=== PATIENT | male | born 1970 | race Hispanic/Latino ===

== ENCOUNTER 2019-01-12 16:42 | Emergency (ER) | payer OTHER | END 2019-01-12 17:32 | disposition home or self-care (01) | LOC: EDH 16:42 | DX: S93.492A Sprain of other ligament of left ankle, initial encounter (principal); E11.9 Type 2 diabetes mellitus without complications; I10 Essential (primary) hypertension; X50.1XXA Overexertion from prolonged static or awkward postures, initial encounter; Y93.89 Activity, other specified; Y92.481 Parking lot as the place of occurrence of the external cause; Y99.8 Other external cause status | CPT/HCPCS: 73610 ==

== ENCOUNTER 2020-01-23 09:56 | Inpatient (IN) | payer OTHER, SELFPAY ==
[~2020-01-23] VITALS: Ht 167.6 cm; Wt 174.0 kg
[2020-01-23 10:50] LABS: BASOPHILS % (AUTO) 0.1 % (0.0-5.0); HEMATOCRIT 47.6 % (42-54); LYMPHOCYTES % (AUTO) 6.7 % (21.0-51.0); MEAN CORPUSCULAR HEMOGLOBIN 29.8 pg (27.0-33.0); MEAN CORPUSCULAR HGB CONC 32.8 g/dL (32.0-36.0); MEAN CORPUSCULAR VOLUME 90.8 fL (79-99); MONOCYTES % (AUTO) 4.3 % (3.0-13.0); NEUTROPHILS % (AUTO) 88.5 % (40.0-77.0); PLATELET COUNT (AUTO) 182 K/uL (130-400); RED BLOOD CELL COUNT(AUTO) 5.24 MIL/uL (4.50-6.20); RED CELL DISTRIBUTION WIDTH 13.2 % (11.0-15.5); WHITE BLOOD COUNT (AUTO) 8.3 K/uL (4.8-10.8)
[2020-01-23 11:03] LABS: PROTHROMBIN TIME 10.8 SEC (9.6-11.6)
[2020-01-23 11:16] LABS: ALBUMIN 3.2 g/dL (3.5-5.0); CREATININE 1.4 mg/dL (0.5-1.5); POTASSIUM 3.9 mmol/L (3.5-5.1); TOTAL PROTEIN, SERUM 7.9 g/dL (6.0-8.3)
[2020-01-23 11:29] LABS: BILIRUBIN,TOTAL 0.9 mg/dL (0.2-1.0)
[2020-01-23] MEDS ORDERED: ONDANSETRON HCL 4 MG/2 ML VIAL IVP PRN (12:45)
[2020-01-23] MEDS ORDERED: HYDRALAZINE HCL 20 MG/ML VIAL IV PRN (12:45)
[2020-01-23] MEDS ORDERED: POTASSIUM CHLORIDE 10% ELIXIR 20 MEQ/15 ML UDCUP PO PRN (12:45)
[2020-01-23] MEDS ORDERED: LIDOCAINE HCL-MPF 1% 2ML VIAL IV PRN (12:45)
[2020-01-23] MEDS ORDERED: LACTULOSE 20 GM/30 ML UDCUP PO PRN (12:45)
[2020-01-23] MEDS ORDERED: POTASSIUM CHLORIDE 20MEQ/100ML 100 ML IV PRN (12:45)
[2020-01-23] MEDS ORDERED: LOPERAMIDE 1 MG/7.5 ML UDCUP PO PRN (12:45)
[2020-01-23] MEDS ORDERED: LEVOFLOXACIN 500 MG/D5W 100 ML 100 ML ONE (12:46)
[2020-01-23] MEDS ORDERED: CEFTRIAXONE SODIUM 1 GM ONE (12:46)
[2020-01-23] MEDS ORDERED: ACETAMINOPHEN EXTRA STRENGTH 500 MG TABLET ONE (12:47)
[2020-01-23 13:47] LABS: ABG BASE EXCESS -2.9 mmol/L (-2.0-3.0); ABG HCO3 22.1 mmol/L (21.0-28.0); ABG OXYGEN SATURATION 96.1 % (95.0-99.0); ABG PCO2 39 mmHg (35-48)
[2020-01-23 14:01] LABS: CRP QUANTITATIVE 114.4 mg/L (0.00-9.0); MAGNESIUM 1.4 mg/dL (1.80-2.40)
[2020-01-23] MEDS ORDERED: FUROSEMIDE 10 MG/ML 4ML VIAL ONE (14:50)
[2020-01-23] MEDS ORDERED: PHARMACY COMMUNICATION MISC SCH (15:15)
[2020-01-23] MEDS: FUROSEMIDE 10 MG/ML 4ML VIAL IV SCH (16:00)
[2020-01-23] MEDS: FAMOTIDINE 20MG TAB 20 MG TAB PO SCH (21:00)
[2020-01-23] MEDS ORDERED: FAMOTIDINE 20MG TAB 20 MG TAB ONE (21:45)
[2020-01-23] MEDS ORDERED: ENOXAPARIN SODIUM 100 MG/1 ML SQ ONE (21:47)
[2020-01-23 23:40] VITALS: BP 155/90
--- NOTE | 2020-01-23 23:47 | NUR ---
ADMIT PT ADMITTED TO ROOM 410, AAOX3 WITH NOTED SOB WITH EXERTION. PLACED PT ON 5LPM VIA NC, O2 SATS = 92%. ADMISSION CARE DONE. PLACED COMFORTABLY IN BED WITH HOB ELEVATED. ADMISSION DATA BASE COMPLETED. ORIENTED TO ROOM AND UNIT. IN FOR MORE CARE AND MANAGEMENT. Addendum: 01/24/20 at 0011 by JINA MCKEON RN RN Amended: Links added.
[2020-01-24] MEDS ORDERED: PRED20TA3 PO (00:18)
[2020-01-24] MEDS ORDERED: AMLO-97 PO (00:18)
[2020-01-24] MEDS ORDERED: METO-409 PO (00:18)
[2020-01-24] MEDS ORDERED: AZIT250T9 PO (00:18)
[2020-01-24] MEDS ORDERED: ALBU8.5H8 IH (00:21)
[2020-01-24] MEDS ORDERED: ENOXAPARIN SODIUM 120 MG/0.8ML SQ SCH (01:45)
--- NOTE | 2020-01-24 02:00 | NUR ---
ROUNDS PT RESTING WELL. NO NOTED DISTRESS. KEPT COMFORTABLE WITH HOB ELEVATED. CALL LIGHT WITHIN REACH. WILL MONITOR PT.
[2020-01-24] MEDS: FUROSEMIDE 10 MG/ML 4ML VIAL IV SCH ×2 (03:33→16:06)
--- NOTE | 2020-01-24 03:34 | NUR ---
MEDS PCP IN TO MONITOR V/S, STABLE. RT ASKED FOR EXTENSION TUBING FOR PT. DELIVERED AND INSTRUCTED TO CALL [facility] IN NEED TO AMBULATE TO THE RESTROOM. PT CLAIMS TO ONLY HAVE SOB WHEN MOVING. PT VERBALIZES UNDERSTANDING. DUE MEDS ADMINISTERED. SALINE FLUSHED PIVS, PATENT. WILL MONITOR PT. Addendum: 01/24/20 at 0356 by JINA MCKEON RN RN Amended: Links added.
[2020-01-24 03:55] VITALS: BP 129/82
--- NOTE | 2020-01-24 05:15 | NUR ---
O2 PT WENT TO THE RESTROOM THEN BACK TO BED. GED TEACHER IN TO DO CHEST X-RAY. PT'S O2 SATS GOING DOWN TO 85-88 ON 5LPM NC. RE-POSITIONED PT IN BED BUT PT IS MORE DYSPNEIC WITH MOVEMENT. ASSISTED PT TO SIT UP ON THE SIDE OF THE BED AND LEAN ON 2 PILLOWS OVER THE BEDSIDE TABLE. PT'S O2 SAT=90%. WILNER RT, MADE AWARE AND STATED TO JUST PUT PT ON MASK. PLACED PT ON 50% VENTI MASK. O2 SATS INCREASED TO 94%. WILL MONITOR CLOSELY. CALL LIGHT WITHIN REACH. INSTRUCTED TO BE BEDREST FOR NOW.
[2020-01-24 08:00] VITALS: BP 111/71
[2020-01-24] MEDS: FAMOTIDINE 20MG TAB 20 MG TAB PO SCH ×2 (09:22→20:36)
[2020-01-24] MEDS: DEXAMETHASONE SOD PHOSPHATE 4 MG/ML 1ML VIAL IVP SCH (09:22)
[2020-01-24] MEDS: ENOXAPARIN SODIUM 120 MG/0.8ML SQ SCH ×2 (09:24→20:37)
[2020-01-24 12:00] VITALS: BP 185/98
[2020-01-24] MEDS ORDERED: PHARMACY COMMUNICATION MISC SCH (14:00)
[2020-01-24] MEDS ORDERED: REMDESIVIR (EUA) 520 200 MG in SODIUM CHLORIDE 0.9% 250 ML IV ONE (15:00)
[2020-01-24 16:00] VITALS: BP 125/68
--- NOTE | 2020-01-24 17:36 | NUR ---
DCP CM spoke to pt discussed dc plans. Pt is independent prior to admission, lives at home with brother. Denies any equipments/services. Feels safe to go back home, still drives and works, sister Shanice Osullivan and other siblings able to assist with transportation and needs as necessary. DC plan to home once stable. CM to cont to follow up. Addendum: 01/24/20 at 1737 by NELLA SORIA LVN CM Amended: Links added.
--- NOTE | 2020-01-24 19:35 | NUR ---
PM Assessment Received pt sited at the edge of the bed with Venti mask at 50% noted saturating at 92%, Remdesivir reported 1st dose in progress. Routine assessment done, plan of care discuss, pt made aware that once the Remdesivir will be completely infused then I will administer the convalescent plasma 1 unit as order. PT currently denies discomfort, claimed it was last night that he got so scared thinking he might due to SOB. I verified with pt if he was advise to do prone position if possible. Pt claimed he had tried, but unable to tolerate. PT made aware that prone position really help with issue of SOB, if he can to continue trying, pt agreed.
[2020-01-24 20:16] VITALS: BP 106/64
[2020-01-24] MEDS: INSULIN HUMULIN R 100 UNIT/ML 3ML SQ SCH (22:35)
--- NOTE | 2020-01-24 22:45 | NUR ---
Re: Convalescent plasma transfusion Thawed FP COVID unit # [id number] initiated at this time, any possible reactions like fever, headache, chest pain,rash, worsening SOB to notify me PRASANTH, as pt claimed this is the 1st time he is receiving a blood product, & voiced understanding.
[2020-01-25 00:20] VITALS: BP 108/69
--- NOTE | 2020-01-25 00:25 | NUR ---
Re: Plasma transfusion Plasma transfusion completed at this time with no reactions notes.
--- NOTE | 2020-01-25 00:40 | NUR ---
Re: Monitoring Pt noted from viewing on the camera, attempted x 2 to lay down, but sit up at the edge of the bed right back. Checked, stated he can't tolerate lying down as he noted that his saturation reading drop easily to the high 80"s. Assurance given to the pt as he claimed when sitting, he feels so sleepy but when lying down he can't sleep. I assured the pt not to be scared, since I am monitoring him closely by the camera & if he continues to desaturates when sleeping I will change his mode of oxygenation to an NRB to keep his saturation in the 90"s.
--- NOTE | 2020-01-25 01:30 | NUR ---
Re: Desaturation Pt noted back in bed, on high back rest, supine position, on Venti mask at 50% desaturate to 85-88%, sleeping, place on NRB at 15L which in 3 minuted saturation reading up to 94%. Respiratory therapist Xiomara updated with this ongoing issue.
[2020-01-25 03:35] LABS: ABG BASE EXCESS -1.3 mmol/L (-2.0-3.0); ABG OXYGEN SATURATION 88.5 % (95.0-99.0); ABG PCO2 48 mmHg (35-48)
[2020-01-25 04:20] VITALS: BP 130/80
[2020-01-25 05:30] LABS: BASOPHILS % (AUTO) 0.1 % (0.0-5.0); HEMATOCRIT 45.2 % (42-54); LYMPHOCYTES % (AUTO) 9.5 % (21.0-51.0); MEAN CORPUSCULAR HEMOGLOBIN 30.4 pg (27.0-33.0); MEAN CORPUSCULAR HGB CONC 34.1 g/dL (32.0-36.0); MEAN CORPUSCULAR VOLUME 89.2 fL (79-99); MONOCYTES % (AUTO) 6.3 % (3.0-13.0); NEUTROPHILS % (AUTO) 83.7 % (40.0-77.0); PLATELET COUNT (AUTO) 212 K/uL (130-400); RED BLOOD CELL COUNT(AUTO) 5.07 MIL/uL (4.50-6.20); RED CELL DISTRIBUTION WIDTH 13.2 % (11.0-15.5); WHITE BLOOD COUNT (AUTO) 9.3 K/uL (4.8-10.8)
[2020-01-25] MEDS: FUROSEMIDE 10 MG/ML 4ML VIAL IV SCH ×2 (05:42→17:38)
[2020-01-25] MEDS: INSULIN HUMULIN R 100 UNIT/ML 3ML SQ SCH ×4 (05:42→21:28)
[2020-01-25] MEDS: PHARMACY COMMUNICATION MISC SCH (05:43)
[2020-01-25 06:01] LABS: ALBUMIN 2.9 g/dL (3.5-5.0); BILIRUBIN,DIRECT 0.3 mg/dL (0.0-0.3); BILIRUBIN,TOTAL 0.7 mg/dL (0.2-1.0); CREATININE 1.3 mg/dL (0.5-1.5); MAGNESIUM 1.9 mg/dL (1.80-2.40); POTASSIUM 3.9 mmol/L (3.5-5.1); TOTAL PROTEIN, SERUM 7.9 g/dL (6.0-8.3)
[2020-01-25 08:00] VITALS: BP 117/74
[2020-01-25] MEDS: ENOXAPARIN SODIUM 120 MG/0.8ML SQ SCH ×2 (09:58→21:57)
[2020-01-25] MEDS: DEXAMETHASONE SOD PHOSPHATE 4 MG/ML 1ML VIAL IVP SCH (09:58)
[2020-01-25] MEDS: FAMOTIDINE 20MG TAB 20 MG TAB PO SCH ×2 (09:58→21:57)
[2020-01-25 12:00] VITALS: BP 139/81
[2020-01-25] MEDS ORDERED: COMPOUND IV REFRIGERATED 1 EACH IVSOLN MISC PRN (12:30)
[2020-01-25] MEDS: HYDROCODONE/ACETAMINOPHEN 5/325 MG TAB PO PRN (14:17)
[2020-01-25] MEDS: REMDESIVIR (EUA) 520 100 MG in SODIUM CHLORIDE 0.9% 250 ML IV SCH (15:17)
[2020-01-25 16:00] VITALS: BP 129/73
[2020-01-25 20:20] VITALS: BP 122/72
[2020-01-26 00:24] VITALS: BP 116/67
[2020-01-26 03:49] LABS: ABG BASE EXCESS 1.3 mmol/L (-2.0-3.0); ABG OXYGEN SATURATION 75.7 % (95.0-99.0); ABG PCO2 52 mmHg (35-48)
[2020-01-26 04:24] VITALS: BP 112/59
[2020-01-26] MEDS: PHARMACY COMMUNICATION MISC SCH (06:00)
[2020-01-26] MEDS: FUROSEMIDE 10 MG/ML 4ML VIAL IV SCH ×2 (06:34→17:20)
[2020-01-26 07:05] LABS: HEMATOCRIT 46.5 % (42-54); MEAN CORPUSCULAR HEMOGLOBIN 29.8 pg (27.0-33.0); MEAN CORPUSCULAR HGB CONC 33.5 g/dL (32.0-36.0); MEAN CORPUSCULAR VOLUME 88.9 fL (79-99); RED BLOOD CELL COUNT(AUTO) 5.23 MIL/uL (4.50-6.20); RED CELL DISTRIBUTION WIDTH 13.2 % (11.0-15.5); WHITE BLOOD COUNT (AUTO) 8.3 K/uL (4.8-10.8)
[2020-01-26] MEDS: INSULIN HUMULIN R 100 UNIT/ML 3ML SQ SCH ×4 (07:30→21:20)
[2020-01-26 08:00] VITALS: BP 99/57
[2020-01-26 09:08] LABS: ALBUMIN 2.9 g/dL (3.5-5.0); BILIRUBIN,DIRECT 0.3 mg/dL (0.0-0.3); BILIRUBIN,TOTAL 0.8 mg/dL (0.2-1.0); CREATININE 1.2 mg/dL (0.5-1.5); MAGNESIUM 2.1 mg/dL (1.80-2.40); PHOSPHORUS 3.5 mg/dL (2.5-4.9); POTASSIUM 3.9 mmol/L (3.5-5.1); TOTAL PROTEIN, SERUM 7.8 g/dL (6.0-8.3)
[2020-01-26] MEDS: DEXAMETHASONE SOD PHOSPHATE 4 MG/ML 1ML VIAL IVP SCH (10:27)
[2020-01-26] MEDS: FAMOTIDINE 20MG TAB 20 MG TAB PO SCH ×2 (10:27→21:17)
[2020-01-26] MEDS: ENOXAPARIN SODIUM 120 MG/0.8ML SQ SCH ×2 (10:28→21:16)
[2020-01-26 11:41] VITALS: BP 128/79
[2020-01-26] MEDS: REMDESIVIR (EUA) 520 100 MG in SODIUM CHLORIDE 0.9% 250 ML IV SCH (14:59)
[2020-01-26 16:00] VITALS: BP 131/76
[2020-01-26 20:24] VITALS: BP 119/82
[2020-01-27] VITALS (7 sets, daily range): BP systolic 105–143; BP diastolic 60–87
[2020-01-27 03:35] LABS: ABG BASE EXCESS 1.3 mmol/L (-2.0-3.0); ABG HCO3 26.6 mmol/L (21.0-28.0); ABG OXYGEN SATURATION 84.9 % (95.0-99.0); ABG PCO2 44 mmHg (35-48)
[2020-01-27 05:30] LABS: HEMATOCRIT 46.3 % (42-54); MEAN CORPUSCULAR HEMOGLOBIN 29.4 pg (27.0-33.0); MEAN CORPUSCULAR HGB CONC 33.3 g/dL (32.0-36.0); MEAN CORPUSCULAR VOLUME 88.5 fL (79-99); RED BLOOD CELL COUNT(AUTO) 5.23 MIL/uL (4.50-6.20); RED CELL DISTRIBUTION WIDTH 12.9 % (11.0-15.5); WHITE BLOOD COUNT (AUTO) 8.9 K/uL (4.8-10.8)
[2020-01-27 05:53] LABS: ALBUMIN 2.8 g/dL (3.5-5.0); BILIRUBIN,DIRECT 0.2 mg/dL (0.0-0.3); BILIRUBIN,TOTAL 0.8 mg/dL (0.2-1.0); PHOSPHORUS 3.2 mg/dL (2.5-4.9); POTASSIUM 3.8 mmol/L (3.5-5.1); TOTAL PROTEIN, SERUM 7.6 g/dL (6.0-8.3)
[2020-01-27] MEDS: PHARMACY COMMUNICATION MISC SCH (06:00)
[2020-01-27] MEDS: FUROSEMIDE 10 MG/ML 4ML VIAL IV SCH ×2 (06:21→17:55)
[2020-01-27] MEDS: INSULIN HUMULIN R 100 UNIT/ML 3ML SQ SCH ×4 (07:18→21:26)
[2020-01-27] MEDS: DEXAMETHASONE SOD PHOSPHATE 4 MG/ML 1ML VIAL IVP SCH (08:56)
[2020-01-27] MEDS: FAMOTIDINE 20MG TAB 20 MG TAB PO SCH ×2 (08:56→21:21)
[2020-01-27] MEDS: ENOXAPARIN SODIUM 120 MG/0.8ML SQ SCH ×2 (08:57→21:23)
[2020-01-27] MEDS: REMDESIVIR (EUA) 520 100 MG in SODIUM CHLORIDE 0.9% 250 ML IV SCH (15:12)
[2020-01-28 04:17] VITALS: BP 108/75
[2020-01-28] MEDS: PHARMACY COMMUNICATION MISC SCH (06:00)
[2020-01-28 06:03] LABS: BASOPHILS % (AUTO) 0.3 % (0.0-5.0); HEMATOCRIT 49.6 % (42-54); LYMPHOCYTES % (AUTO) 10.4 % (21.0-51.0); MEAN CORPUSCULAR HEMOGLOBIN 29.5 pg (27.0-33.0); MEAN CORPUSCULAR HGB CONC 33.1 g/dL (32.0-36.0); MEAN CORPUSCULAR VOLUME 89.4 fL (79-99); MONOCYTES % (AUTO) 7.3 % (3.0-13.0); NEUTROPHILS % (AUTO) 81.2 % (40.0-77.0); PLATELET COUNT (AUTO) 304 K/uL (130-400); RED BLOOD CELL COUNT(AUTO) 5.55 MIL/uL (4.50-6.20); RED CELL DISTRIBUTION WIDTH 12.9 % (11.0-15.5)
[2020-01-28 06:39] LABS: ALBUMIN 2.9 g/dL (3.5-5.0); BILIRUBIN,DIRECT 0.3 mg/dL (0.0-0.3); BILIRUBIN,TOTAL 1.1 mg/dL (0.2-1.0); CREATININE 1.2 mg/dL (0.5-1.5); MAGNESIUM 1.7 mg/dL (1.80-2.40); PHOSPHORUS 3.8 mg/dL (2.5-4.9); POTASSIUM 3.4 mmol/L (3.5-5.1); TOTAL PROTEIN, SERUM 7.7 g/dL (6.0-8.3)
[2020-01-28] MEDS: INSULIN HUMULIN R 100 UNIT/ML 3ML SQ SCH ×4 (06:56→21:22)
[2020-01-28] MEDS: DEXAMETHASONE SOD PHOSPHATE 4 MG/ML 1ML VIAL IVP SCH (08:37)
[2020-01-28] MEDS: FAMOTIDINE 20MG TAB 20 MG TAB PO SCH ×2 (08:37→21:23)
[2020-01-28] MEDS: ENOXAPARIN SODIUM 120 MG/0.8ML SQ SCH ×2 (08:38→21:25)
[2020-01-28 08:58] VITALS: BP 107/66
[2020-01-28] MEDS: HYDROCODONE/ACETAMINOPHEN 5/325 MG TAB PO PRN (10:09)
[2020-01-28 12:03] VITALS: BP 118/72
[2020-01-28] MEDS: POTASSIUM CHLORIDE 20 MEQ ERTAB PO PRN ×2 (14:20→16:58)
[2020-01-28] MEDS: REMDESIVIR (EUA) 520 100 MG in SODIUM CHLORIDE 0.9% 250 ML IV SCH (14:41)
[2020-01-28] MEDS ORDERED: BENZONATATE 100 MG CAPSULE PO PRN (14:45)
[2020-01-28 16:49] VITALS: BP 133/85
[2020-01-28] MEDS: FUROSEMIDE 10 MG/ML 4ML VIAL IV SCH (18:04)
[2020-01-28] MEDS: GUAIFENESIN-CODEINE 5 ML SYRUP PO PRN ×2 (18:07→23:42)
[2020-01-28 20:18] VITALS: BP 125/71
[2020-01-28 23:58] VITALS: BP 130/76
[2020-01-29 03:46] VITALS: BP 139/64
[2020-01-29 03:53] LABS: ABG BASE EXCESS 2.1 mmol/L (-2.0-3.0); ABG HCO3 28.3 mmol/L (21.0-28.0); ABG OXYGEN SATURATION 87.7 % (95.0-99.0); ABG PCO2 50 mmHg (35-48)
[2020-01-29] MEDS: PHARMACY COMMUNICATION MISC SCH (06:00)
[2020-01-29] MEDS: FUROSEMIDE 10 MG/ML 4ML VIAL IV SCH ×2 (06:00→17:20)
--- NOTE | 2020-01-29 06:09 | NUR ---
Patient continued on 100% NRB mask with POX b/w 90-92% lying supine. Prone position yield better result and encouraged, but pt is uncomfortable lying on his abdomen. Blood gas improving. No acute respiratory distress this shift. Patient is in stable condition. Will continue to monitor.
[2020-01-29 06:33] LABS: BASOPHILS % (AUTO) 0.2 % (0.0-5.0); HEMATOCRIT 52.7 % (42-54); LYMPHOCYTES % (AUTO) 9.8 % (21.0-51.0); MEAN CORPUSCULAR HEMOGLOBIN 29.9 pg (27.0-33.0); MEAN CORPUSCULAR VOLUME 90.7 fL (79-99); MONOCYTES % (AUTO) 7.4 % (3.0-13.0); NEUTROPHILS % (AUTO) 81.6 % (40.0-77.0); PLATELET COUNT (AUTO) 378 K/uL (130-400); RED BLOOD CELL COUNT(AUTO) 5.81 MIL/uL (4.50-6.20)
[2020-01-29 06:49] LABS: ALBUMIN 3.3 g/dL (3.5-5.0); BILIRUBIN,TOTAL 1.4 mg/dL (0.2-1.0); CREATININE 1.1 mg/dL (0.5-1.5); PHOSPHORUS 3.4 mg/dL (2.5-4.9); POTASSIUM 3.8 mmol/L (3.5-5.1); TOTAL PROTEIN, SERUM 8.9 g/dL (6.0-8.3)
[2020-01-29] MEDS: INSULIN HUMULIN R 100 UNIT/ML 3ML SQ SCH ×4 (07:30→21:19)
[2020-01-29 07:31] VITALS: BP 151/87
[2020-01-29] MEDS: FAMOTIDINE 20MG TAB 20 MG TAB PO SCH ×2 (08:18→21:19)
[2020-01-29] MEDS: DEXAMETHASONE SOD PHOSPHATE 4 MG/ML 1ML VIAL IVP SCH (08:18)
[2020-01-29] MEDS: ENOXAPARIN SODIUM 120 MG/0.8ML SQ SCH ×2 (08:19→21:20)
[2020-01-29 11:06] VITALS: BP 114/70
[2020-01-29] MEDS: GUAIFENESIN-CODEINE 5 ML SYRUP PO PRN ×3 (14:58→23:55)
[2020-01-29 16:04] VITALS: BP 118/70
[2020-01-29 19:58] VITALS: BP 123/74
--- NOTE | 2020-01-30 00:55 | NUR ---
O2 Desaturation Pt is coughing O2 is 75%. Cough medication was given. Pt sitting at the side of bed no distress noted. RT came to bedside and stated pt is 82% sitting at side of bed no need to increase O2 at this time. Will continue to monitor.
[2020-01-30 01:17] VITALS: BP 138/80
[2020-01-30] MEDS ORDERED: ACETAMINOPHEN 325 MG TAB ONE (03:31)
[2020-01-30 04:06] VITALS: BP 139/80
[2020-01-30 04:27] LABS: ABG BASE EXCESS 2.7 mmol/L (-2.0-3.0); ABG OXYGEN SATURATION 84.8 % (95.0-99.0); ABG PCO2 41 mmHg (35-48)
[2020-01-30 05:16] LABS: BASOPHILS % (AUTO) 0.3 % (0.0-5.0); EOSINOPHILS % (AUTO) 0.1 % (0.0-8.0); HEMATOCRIT 47.8 % (42-54); LYMPHOCYTES % (AUTO) 11.4 % (21.0-51.0); MEAN CORPUSCULAR HEMOGLOBIN 29.4 pg (27.0-33.0); MEAN CORPUSCULAR HGB CONC 33.1 g/dL (32.0-36.0); MEAN CORPUSCULAR VOLUME 88.8 fL (79-99); MONOCYTES % (AUTO) 5.3 % (3.0-13.0); NEUTROPHILS % (AUTO) 79.6 % (40.0-77.0); NUCLEATED RED BLOOD CELLS 0.1 % (0.0-0.19); PLATELET COUNT (AUTO) 380 K/uL (130-400); RED BLOOD CELL COUNT(AUTO) 5.38 MIL/uL (4.50-6.20); WHITE BLOOD COUNT (AUTO) 14.6 K/uL (4.8-10.8)
[2020-01-30 05:42] LABS: ALBUMIN 2.7 g/dL (3.5-5.0); BILIRUBIN,TOTAL 1.6 mg/dL (0.2-1.0); CREATININE 1.2 mg/dL (0.5-1.5); MAGNESIUM 1.5 mg/dL (1.80-2.40); PHOSPHORUS 3.1 mg/dL (2.5-4.9); POTASSIUM 3.2 mmol/L (3.5-5.1); TOTAL PROTEIN, SERUM 7.7 g/dL (6.0-8.3)
[2020-01-30] MEDS: INSULIN HUMULIN R 100 UNIT/ML 3ML SQ SCH ×4 (06:35→21:02)
[2020-01-30] MEDS: FUROSEMIDE 10 MG/ML 4ML VIAL IV SCH ×2 (06:35→17:23)
[2020-01-30 07:35] VITALS: BP 146/85
[2020-01-30] MEDS: DEXAMETHASONE SOD PHOSPHATE 4 MG/ML 1ML VIAL IVP SCH (08:35)
[2020-01-30] MEDS: POTASSIUM CHLORIDE 20 MEQ ERTAB PO PRN (08:36)
[2020-01-30] MEDS: ENOXAPARIN SODIUM 120 MG/0.8ML SQ SCH ×2 (08:36→20:16)
[2020-01-30 11:00] VITALS: BP 123/74
[2020-01-30] MEDS: HYDROCODONE/ACETAMINOPHEN 5/325 MG TAB PO PRN ×2 (12:38→21:29)
[2020-01-30 12:46] LABS: ABG BASE EXCESS 0.7 mmol/L (-2.0-3.0); ABG HCO3 25.3 mmol/L (21.0-28.0); ABG OXYGEN SATURATION 78.7 % (95.0-99.0); ABG PCO2 41 mmHg (35-48)
--- NOTE | 2020-01-30 13:05 | NUR ---
PATIENT UPDATE AT APPROX 1208 HOURS RADHA VENANCIO ROBLES ENTERED THE ROOM AND FOUND PATIENT SLUMPED OVER ON THE LEFT SIDE OF THE BED WITH OUT ANY SUPPLEMENTAL OXYGEN. PATIENT WAS UNRESPONSIVE AND ASHEN COLORED. CODE MARLEN WAS CALLED, PATIENT WAS REPOSITIONED IN THE BED, SUPPLEMENTAL OXYGEN WAS PLACED ON PATIENT, PATIENT DID HAVE A PULSE. AFTER PLACING SUPPLEMENTAL OXYGEN ON PATIENT, HE REGAINED CONSCIOUSNESS. BLOOD SUGAR WAS 173. PATIENT WAS TRANSFERRED TO ROOM 203, REPORT WAS GIVEN TO POLLO CHARGE NURSE, VITALS WERE BP119/63, PULSE OXYGEN 88% ON NRB (15L)/HIGH FLOW O2 70LMP, 100%. HEART RATE 102, RESP 25.
[2020-01-30 15:30] VITALS: BP 126/74
--- NOTE | 2020-01-30 16:27 | NUR ---
Pt currently on Non-rebreather, patient laying prone pulse ox 93%. pt tolerationg prone position well. no complaints of any pain or discomfort. Pt Brother called unit, Pt gave permission to give brother update. will cont to monitor
[2020-01-30 19:57] VITALS: BP 136/77
[2020-01-30] MEDS: GUAIFENESIN-CODEINE 5 ML SYRUP PO PRN (21:30)
--- NOTE | 2020-01-30 22:47 | NUR ---
02 SAT NURSE WENT TO TELE ROOM TO CHECK PT O2 SAT NOTED 02 SAT ONLY 82% PT CURRENTLY ON NRB @ 15 L AND HFNC 70L 100% FIO2. ASSESSED PT, IN NO DISTRESS SLEEPING ON HIS LEFT SIDE PT AWAKENED AND INSTRUCTED TO LAY IN PRONE POSITION. BEDSIDE CONTINUOS PULSE OX APPLIED AT THIS TIME. PT ASSISTED TO PRONE POSITION 02 SAT RANGING FROM 82-86 WHILE IN PRONE POSITION. RT NOTIFIED AND WILL COME SEE PATIENT. Addendum: 01/30/20 at 2257 by EDDIE REYEZ RN RN RT CORWIN AT BEDSIDE TO ASSESS PT 02 RANGING FROM 85-90%. PER CORWIN ALLOW PERMISSIVE HYPOXIA AND HE ADJUSTED CONTINUOS PULSE OX LOWER LIMIT TO 85. PT HAS TRIED BIPAP BEFORE AND REPORTS HE COULD NOT TOLERATE IT. CORWIN TO DISCUSS USE OF BIPAP AGAIN WITH PATIENT.
[2020-01-31] VITALS (7 sets, daily range): BP systolic 102–154; BP diastolic 48–84
--- NOTE | 2020-01-31 00:27 | NUR ---
PT STATUS PT ASSISTED TO USE URINAL, REQUESTS TO STAY SIDE LYING AT THIS TIME PT ENCOURAGED TO MAINTAIN PRONE POSITION MUCH HE IS ABLE TO TOLERATE WOULD LIKE TO TRY SIDE LYING AND SEE WHAT 02 SAT MAINTAINS AT, PT IN LEFT SIDE LYING POSITION 02 SAT RANGING BETWEEN 86-88%.
[2020-01-31 03:45] LABS: ABG BASE EXCESS 3.5 mmol/L (-2.0-3.0); ABG HCO3 28.3 mmol/L (21.0-28.0); ABG OXYGEN SATURATION 81.6 % (95.0-99.0); ABG PCO2 43 mmHg (35-48)
[2020-01-31 06:03] LABS: BASOPHILS % (AUTO) 0.4 % (0.0-5.0); EOSINOPHILS % (AUTO) 0.3 % (0.0-8.0); HEMATOCRIT 47.6 % (42-54); MEAN CORPUSCULAR HEMOGLOBIN 29.8 pg (27.0-33.0); MEAN CORPUSCULAR HGB CONC 33.4 g/dL (32.0-36.0); MEAN CORPUSCULAR VOLUME 89.3 fL (79-99); MONOCYTES % (AUTO) 5.1 % (3.0-13.0); NEUTROPHILS % (AUTO) 83.4 % (40.0-77.0); PLATELET COUNT (AUTO) 437 K/uL (130-400); RED BLOOD CELL COUNT(AUTO) 5.33 MIL/uL (4.50-6.20); WHITE BLOOD COUNT (AUTO) 15.4 K/uL (4.8-10.8)
[2020-01-31 06:18] LABS: ALBUMIN 2.7 g/dL (3.5-5.0); BILIRUBIN,TOTAL 1.6 mg/dL (0.2-1.0); CREATININE 1.1 mg/dL (0.5-1.5); MAGNESIUM 1.6 mg/dL (1.80-2.40); PHOSPHORUS 2.9 mg/dL (2.5-4.9); POTASSIUM 3.5 mmol/L (3.5-5.1); TOTAL PROTEIN, SERUM 8.2 g/dL (6.0-8.3)
--- NOTE | 2020-01-31 06:22 | NUR ---
02 SAT CONTINUOS PULSE OX READING 81-82 ASSESSED PT ASLEEP AWAKENED CHECKED 02 DEVICES AND CHANGED PROBE. PT LAYING ON LEFT SIDE ENCOURAGED TO TURN BACK TO PRONE AND DECLINED STATES HE WANTED TO SIT STRAIGHT UP INSTEAD. PT REPOSITIONED 02 SAT 71-75 GAVE PT TIME TO RECOVER FROM MOVING 02 SAT REMAINED AT 77 RAPID RESPONSE INITIATED. RT AT BEDSIDE TO EVAL PT REPOSITIONED TO PRONE AND 02 SAT SLOWLY IMPROVED BACK TO 84. PER RT REQUEST ANTI ANXIETY MED FOR PT TO HELP TRIAL BIPAP AGAIN, HE ALSO RECOMMENDS NG TUBE DUE TO LIKELY INFLATION OF STOMACH WITH USE. PAGE TO ONCALL PROVIDER, AWAITING RESPONSE BACK.
[2020-01-31 06:24] LABS: B-TYPE NATRIURETIC PEPTIDE 39 pg/mL (0-100)
[2020-01-31] MEDS: FUROSEMIDE 10 MG/ML 4ML VIAL IV SCH ×2 (06:31→17:22)
[2020-01-31] MEDS: POTASSIUM CHLORIDE 20 MEQ ERTAB PO PRN ×2 (06:34→08:17)
[2020-01-31] MEDS ORDERED: ZIPRASIDONE MESYLATE 20 MG/VIAL IM PRN (07:00)
[2020-01-31] MEDS: INSULIN HUMULIN R 100 UNIT/ML 3ML SQ SCH ×4 (07:12→20:05)
[2020-01-31] MEDS: DEXAMETHASONE SOD PHOSPHATE 4 MG/ML 1ML VIAL IVP SCH (08:14)
[2020-01-31] MEDS: ENOXAPARIN SODIUM 120 MG/0.8ML SQ SCH ×2 (08:17→20:52)
[2020-01-31] MEDS: ALPRAZOLAM 0.25 MG TABLET PO PRN ×2 (08:17→19:29)
[2020-01-31] MEDS ORDERED: GUAIFENESIN-CODEINE 5 ML SYRUP PO PRN (14:45)
[2020-01-31] MEDS: GUAIFENESIN-CODEINE 5 ML SYRUP PO PRN (15:29)
[2020-01-31] MEDS: FLUTICASONE PROPIONATE 50MCG/SPRAY 16 GM BOTTLE EN SCH (15:29)
--- NOTE | 2020-01-31 21:23 | NUR ---
02 SAT 02 SAT RANGING FROM 80-83 % ON BIPAP 100% FIO2 PT PLACED IN MUCH PRONE POSITION HE CAN TOLERATE HAS DIFFICULTY WITH PRONE POSITION DUE TO SEVERE MORBID OBESITY. RT CALLED TO ASSESS BIPAP AND PT AND INCREASED SETTINGS ON BIPAP. Addendum: 01/31/20 at 2216 by EDDIE REYEZ RN RN RT EVALUATED PT PT IS ON ALL MAXIMUM SETTINGS FOR BIPAP, NEXT STEP WOULD BE INTUBATION. PT IS TOLERATING 02 SATS IN LOW 80S IS NOT IN DISTRESS AND AND A&OX3 AND CONVERSATIONAL. PER RT ATTEMPTING TO NOT INTUBATE PT IF TOLERATING CURRENT 02 SAT. CHARGE NURSE MARCELLO NOTIFIED OF PT STATUS AND RT PLANS. Addendum: 02/01/20 at 0041 by EDDIE REYEZ RN RN DIFFERENT RT READJUSTED SETTINGS AND PT REPOSITIONED 02 SAT NOW 90-93%.
[2020-02-01 05:04] LABS: HEMATOCRIT 48.3 % (42-54); MEAN CORPUSCULAR HEMOGLOBIN 29.6 pg (27.0-33.0); MEAN CORPUSCULAR HGB CONC 33.1 g/dL (32.0-36.0); MEAN CORPUSCULAR VOLUME 89.3 fL (79-99); RED BLOOD CELL COUNT(AUTO) 5.41 MIL/uL (4.50-6.20); RED CELL DISTRIBUTION WIDTH 12.9 % (11.0-15.5); WHITE BLOOD COUNT (AUTO) 16.9 K/uL (4.8-10.8)
[2020-02-01 05:22] LABS: ALBUMIN 2.4 g/dL (3.5-5.0); BILIRUBIN,TOTAL 1.4 mg/dL (0.2-1.0); CREATININE 1.3 mg/dL (0.5-1.5); MAGNESIUM 1.6 mg/dL (1.80-2.40); PHOSPHORUS 2.9 mg/dL (2.5-4.9); POTASSIUM 3.8 mmol/L (3.5-5.1); TOTAL PROTEIN, SERUM 8.3 g/dL (6.0-8.3)
[2020-02-01 05:33] LABS: ABG BASE EXCESS 2.1 mmol/L (-2.0-3.0); ABG HCO3 26.1 mmol/L (21.0-28.0); ABG PCO2 39 mmHg (35-48)
[2020-02-01 05:34] VITALS: BP 122/95
--- NOTE | 2020-02-01 05:42 | NUR ---
TEMP 100.4 PAGE TO ONCALL PROVIDER ROLANDO VILLEGAS TO NOTIFY OF TEMP. AWAITING RETURN CALL. Addendum: 02/01/20 at 0617 by EDDIE REYEZ RN RN NO RETURN CALL, PAGE AGAIN.
[2020-02-01] MEDS: INSULIN HUMULIN R 100 UNIT/ML 3ML SQ SCH ×4 (05:45→20:22)
[2020-02-01] MEDS: FUROSEMIDE 10 MG/ML 4ML VIAL IV SCH ×2 (05:53→16:48)
--- NOTE | 2020-02-01 06:13 | NUR ---
02 SAT 02 SAT 80-81% PT POSITIONED ON LEFT SIDE AND PULSE OX CHANGED. RT NOTIFIED AND WILL COME SEE PATIENT.
[2020-02-01 08:00] VITALS: BP 146/83
[2020-02-01] MEDS: FLUTICASONE PROPIONATE 50MCG/SPRAY 16 GM BOTTLE EN SCH (08:31)
[2020-02-01] MEDS: ACETAMINOPHEN 325 MG TAB PO PRN (08:33)
[2020-02-01] MEDS: DEXAMETHASONE SOD PHOSPHATE 4 MG/ML 1ML VIAL IVP SCH (08:33)
[2020-02-01] MEDS: ENOXAPARIN SODIUM 120 MG/0.8ML SQ SCH ×2 (08:33→20:22)
[2020-02-01] MEDS: ALPRAZOLAM 0.25 MG TABLET PO PRN ×2 (08:34→16:50)
[2020-02-01 11:30] VITALS: BP 118/78
[2020-02-01 15:30] VITALS: BP 112/73
[2020-02-01 20:07] VITALS: BP 139/70
[2020-02-01] MEDS: HYDROCODONE/ACETAMINOPHEN 5/325 MG TAB PO PRN (22:14)
[2020-02-01] MEDS: GUAIFENESIN-CODEINE 5 ML SYRUP PO PRN (22:14)
[2020-02-01 23:24] VITALS: BP 115/63
--- NOTE | 2020-02-01 23:44 | NUR ---
02 SAT 02 SAT 79-81% ON BIPAP RT NOTIFIED CHANGED MASK FOR BIPAP AND INCREASED SETTINGS. 02 SAT RANGING FROM 75-81% PT A&0X3, RESPIRATIONS ARE UNLABORED PRESERVATIVE FILLER MACHINE OPERATOR IN TO SEE PT AND SPEAK WITH RT REGARDING STATUS.
[2020-02-02] VITALS (66 sets, daily range): BP systolic 63–155; BP diastolic 41–132
[2020-02-02 01:26] LABS: ABG BASE EXCESS 5.5 mmol/L (-2.0-3.0); ABG HCO3 30.9 mmol/L (21.0-28.0); ABG OXYGEN SATURATION 72.5 % (95.0-99.0); ABG PCO2 48 mmHg (35-48)
--- NOTE | 2020-02-02 01:45 | NUR ---
02 SAT 02 SAT DOWN TO 67 RT NOTIFIED ABG ORDERED. PT A&OX3 DENIES SOB. RT IN WITH PATIENT 02 SAT RANGING FROM 78-84. ABG RESULTS CALLED TO FLOWER CUTTER ADONIS VILLEGAS, PT DOES NOT WISH TO BE INTUBATED AT THIS TIME WANTS TO WAIT UNTIL HE IS IN DISTRESS/HAS AFFECTED HIS MENTAL STATUS. ORDER FOR CXR NOW AND TO TRANSFER PT TO ICU FOR VERY LIKELY NEAR FUTURE INTUBATION AND ICU CARE.
--- NOTE | 2020-02-02 02:24 | NUR ---
PT TRANSFER ASSUME CARE OF PATIENT AT 0215.
[2020-02-02 04:32] LABS: BASOPHILS % (AUTO) 0.3 % (0.0-5.0); EOSINOPHILS % (AUTO) 0.2 % (0.0-8.0); HEMATOCRIT 51.8 % (42-54); LYMPHOCYTES % (AUTO) 5.2 % (21.0-51.0); MEAN CORPUSCULAR HEMOGLOBIN 29.2 pg (27.0-33.0); MEAN CORPUSCULAR HGB CONC 32.4 g/dL (32.0-36.0); MEAN CORPUSCULAR VOLUME 89.9 fL (79-99); MONOCYTES % (AUTO) 4.3 % (3.0-13.0); NEUTROPHILS % (AUTO) 88.2 % (40.0-77.0); PLATELET COUNT (AUTO) 419 K/uL (130-400); RED BLOOD CELL COUNT(AUTO) 5.76 MIL/uL (4.50-6.20); RED CELL DISTRIBUTION WIDTH 12.8 % (11.0-15.5); WHITE BLOOD COUNT (AUTO) 16.8 K/uL (4.8-10.8)
[2020-02-02 04:55] LABS: BILIRUBIN,TOTAL 1.3 mg/dL (0.2-1.0); CREATININE 1.2 mg/dL (0.5-1.5); MAGNESIUM 2.6 mg/dL (1.80-2.40); PHOSPHORUS 4.1 mg/dL (2.5-4.9); POTASSIUM 3.7 mmol/L (3.5-5.1); TOTAL PROTEIN, SERUM 9.4 g/dL (6.0-8.3)
[2020-02-02 05:13] LABS: ALBUMIN 2.7 g/dL (3.5-5.0)
[2020-02-02] MEDS: FUROSEMIDE 10 MG/ML 4ML VIAL IV SCH ×2 (05:41→18:21)
[2020-02-02] MEDS: INSULIN HUMULIN R 100 UNIT/ML 3ML SQ SCH ×4 (07:30→21:49)
[2020-02-02] MEDS ORDERED: NOREPINEPHRINE 4MG/NS 250ML 250 ML IV ONE ×2 (08:07→19:30)
[2020-02-02] MEDS ORDERED: FENTANYL CITRATE PF 50 MCG/1 ML 5ML AMP IV ONE ×2 (08:08→09:00)
[2020-02-02] MEDS ORDERED: MIDAZOLAM HCL 1 MG/ML 2ML VIAL ONE ×3 (08:08→09:00)
[2020-02-02] MEDS ORDERED: SODIUM CHLORIDE 0.9% 1000ML 1,000 ML IV ONE (08:09)
[2020-02-02] MEDS ORDERED: FENTANYL CITRATE PF 0.05 MG/ML 1,000 MCG in SODIUM CHLORIDE 0.9% 100 ML IVPB SCH (08:45)
[2020-02-02] MEDS ORDERED: PHARMACY COMMUNICATION MISC SCH (08:45)
[2020-02-02] MEDS ORDERED: MIDAZOLAM 100MG-0.9% NS 100ML 100ML BAG IV SCH (08:45)
[2020-02-02] MEDS ORDERED: ROCURONIUM 100 MG/NS 100ML (DRIP) IV SCH ×2 (09:00)
[2020-02-02] MEDS: FLUTICASONE PROPIONATE 50MCG/SPRAY 16 GM BOTTLE EN SCH (09:00)
[2020-02-02] MEDS: DEXAMETHASONE SOD PHOSPHATE 4 MG/ML 1ML VIAL IVP SCH (09:00)
[2020-02-02] MEDS: ENOXAPARIN SODIUM 120 MG/0.8ML SQ SCH ×2 (09:00→21:48)
[2020-02-02] MEDS: METOPROLOL SUCCINATE 50 MG TAB.SR.24H PO SCH (09:00)
[2020-02-02] MEDS: AMLODIPINE-BENAZEPRIL 5-20 MG PO SCH (09:00)
[2020-02-02] MEDS ORDERED: PROPOFOL 1000 MG/100 ML 100 ML IV ONE ×5 (09:14→18:48)
[2020-02-02] MEDS ORDERED: FENTANYL CITRATE PF 0.05 MG/ML 2,500 MCG in SODIUM CHLORIDE 0.9% 250 ML IVPB SCH (09:15)
[2020-02-02] MEDS ORDERED: SODIUM CHLORIDE 0.9% 500ML 500 ML IV ONE (10:05)
[2020-02-02] MEDS ORDERED: FENTANYL 2500MCG+NS 250ML 250 ML IV ONE ×2 (10:20→13:26)
[2020-02-02] MEDS ORDERED: SODIUM CHLORIDE 0.9% 100 ML IV ONE (10:54)
[2020-02-02] MEDS ORDERED: ROCURONIUM BROMIDE 250 MG in SODIUM CHLORIDE 0.9% 250 ML IV SCH (11:00)
--- NOTE | 2020-02-02 11:37 | NUR ---
CHANGE OF STATUS Assumed patient @ 0700, patient was on BIPAP @ 100 FiO2 patient O2 sat in the mid 80's. Upon doing rounds with MD Nayak , patient had increased work of breathing, tachypnea, tachycardia and overall dyspnea. MD Nayak stated intubation was necessary. RN spoke to patient about getting intubated and patient agreed. Patient intubated and sats remained in the 70's for about 45 minutes, RT at bedside along with two RN. Patient unable to be proned secondary to abdominal size. HOB elevated and inline suction performed. Patient sats went to low 90's with repositioning. Right IJ central line placed and Kiarra as well by FIRE ALARM OPERATOR. Sister Belle who [place] [facility] [place] of todays events. Patient is currently sedated on propofol, versed, fentanyl and paralyzed with rocoronium drip. Will continue to closely monitor patient.
[2020-02-02 12:24] LABS: ABG BASE EXCESS -0.4 mmol/L (-2.0-3.0); ABG HCO3 28.8 mmol/L (21.0-28.0); ABG OXYGEN SATURATION 91.6 % (95.0-99.0); ABG PCO2 68 mmHg (35-48)
--- NOTE | 2020-02-02 12:34 | NUR ---
UPDATE aware of current ABG results - no new orders given.
[2020-02-02] MEDS: ACETAMINOPHEN 325 MG TAB PO PRN (13:56)
[2020-02-02] MEDS ORDERED: MIDAZOLAM 100MG-0.9% NS 100ML 100ML BAG IV PRN (20:00)
[2020-02-02] MEDS: MIDAZOLAM 100MG-0.9% NS 100ML 100 ML IV SCH (21:50)
[2020-02-02] MEDS: ROCURONIUM BROMIDE 250 MG in SODIUM CHLORIDE 0.9% 250 ML IV SCH (21:51)
[2020-02-02] MEDS: PHENYLEPHRINE HCL 100 MG in SODIUM CHLORIDE 0.9% 250 ML IV SCH (21:52)
[2020-02-02] MEDS: FENTANYL 2500MCG+NS 250ML 250 ML IV SCH (21:52)
[2020-02-02] MEDS: PROPOFOL 1000 MG/100 ML IV PRN (23:10)
[2020-02-03] VITALS (59 sets, daily range): BP systolic 85–162; BP diastolic 56–80
[2020-02-03 03:57] LABS: ABG BASE EXCESS -4.5 mmol/L (-2.0-3.0); ABG HCO3 25.4 mmol/L (21.0-28.0); ABG OXYGEN SATURATION 87.8 % (95.0-99.0); ABG PCO2 68 mmHg (35-48)
[2020-02-03 04:55] LABS: BASOPHILS % (AUTO) 0.4 % (0.0-5.0); LYMPHOCYTES % (AUTO) 5.3 % (21.0-51.0); MEAN CORPUSCULAR HEMOGLOBIN 29.6 pg (27.0-33.0); MEAN CORPUSCULAR HGB CONC 31.1 g/dL (32.0-36.0); MEAN CORPUSCULAR VOLUME 95.1 fL (79-99); MONOCYTES % (AUTO) 4.8 % (3.0-13.0); NEUTROPHILS % (AUTO) 85.5 % (40.0-77.0); NUCLEATED RED BLOOD CELLS 0.2 % (0.0-0.19); PLATELET COUNT (AUTO) 386 K/uL (130-400); RED BLOOD CELL COUNT(AUTO) 4.94 MIL/uL (4.50-6.20); RED CELL DISTRIBUTION WIDTH 13.2 % (11.0-15.5); WHITE BLOOD COUNT (AUTO) 22.4 K/uL (4.8-10.8)
[2020-02-03 05:12] LABS: ALBUMIN 2.2 g/dL (3.5-5.0); CREATININE 3.9 mg/dL (0.5-1.5); MAGNESIUM 2.3 mg/dL (1.80-2.40); PHOSPHORUS 8.2 mg/dL (2.5-4.9); POTASSIUM 4.6 mmol/L (3.5-5.1); TOTAL PROTEIN, SERUM 7.9 g/dL (6.0-8.3)
[2020-02-03] MEDS: PROPOFOL 1000 MG/100 ML IV PRN ×2 (05:48→08:54)
[2020-02-03] MEDS: FUROSEMIDE 10 MG/ML 4ML VIAL IV SCH (05:49)
[2020-02-03] MEDS: INSULIN HUMULIN R 100 UNIT/ML 3ML SQ SCH ×3 (07:30→20:57)
[2020-02-03] MEDS: AMLODIPINE-BENAZEPRIL 5-20 MG PO SCH (08:00)
[2020-02-03] MEDS ORDERED: LACTATED RINGERS 1000ML IV SCH (08:00)
[2020-02-03] MEDS: METOPROLOL SUCCINATE 50 MG TAB.SR.24H PO SCH (08:00)
[2020-02-03] MEDS ORDERED: LACTATED RINGERS 1000ML 1,000 ML IV SCH ×2 (08:00)
[2020-02-03] MEDS ORDERED: SODIUM BICARB 50MEQ 50ML VIAL IV SCH (08:30)
[2020-02-03] MEDS: DEXAMETHASONE SOD PHOSPHATE 4 MG/ML 1ML VIAL IVP SCH (08:54)
[2020-02-03] MEDS: FLUTICASONE PROPIONATE 50MCG/SPRAY 16 GM BOTTLE EN SCH (08:54)
[2020-02-03] MEDS: ENOXAPARIN SODIUM 120 MG/0.8ML SQ SCH ×2 (08:54→20:56)
[2020-02-03] MEDS: MIDAZOLAM 100MG-0.9% NS 100ML 100 ML IV SCH ×2 (08:55→20:54)
[2020-02-03] MEDS: FENTANYL 2500MCG+NS 250ML 250 ML IV SCH (20:55)
[2020-02-04] VITALS (124 sets, daily range): BP systolic 125–144; BP diastolic 68–73
[2020-02-04 03:56] LABS: ABG BASE EXCESS -4.2 mmol/L (-2.0-3.0); ABG OXYGEN SATURATION 88.6 % (95.0-99.0); ABG PCO2 44 mmHg (35-48)
[2020-02-04 05:46] LABS: BASOPHILS % (AUTO) 0.3 % (0.0-5.0); EOSINOPHILS % (AUTO) 0.1 % (0.0-8.0); HEMATOCRIT 39.3 % (42-54); LYMPHOCYTES % (AUTO) 7.7 % (21.0-51.0); MEAN CORPUSCULAR HEMOGLOBIN 29.6 pg (27.0-33.0); MEAN CORPUSCULAR HGB CONC 32.3 g/dL (32.0-36.0); MEAN CORPUSCULAR VOLUME 91.6 fL (79-99); NEUTROPHILS % (AUTO) 82.9 % (40.0-77.0); PLATELET COUNT (AUTO) 276 K/uL (130-400); RED BLOOD CELL COUNT(AUTO) 4.29 MIL/uL (4.50-6.20); RED CELL DISTRIBUTION WIDTH 13.4 % (11.0-15.5); WHITE BLOOD COUNT (AUTO) 12.9 K/uL (4.8-10.8)
[2020-02-04 06:25] LABS: B-TYPE NATRIURETIC PEPTIDE 87 pg/mL (0-100)
[2020-02-04 06:31] LABS: ALBUMIN 1.9 g/dL (3.5-5.0); BILIRUBIN,DIRECT 2.8 mg/dL (0.0-0.3); BILIRUBIN,TOTAL 3.2 mg/dL (0.2-1.0); CREATININE 6.9 mg/dL (0.5-1.5); MAGNESIUM 2.5 mg/dL (1.80-2.40); PHOSPHORUS 6.2 mg/dL (2.5-4.9); POTASSIUM 4.4 mmol/L (3.5-5.1); TOTAL PROTEIN, SERUM 6.8 g/dL (6.0-8.3)
[2020-02-04 06:37] LABS: CRP QUANTITATIVE 222.6 mg/L (0.00-9.0)
[2020-02-04 06:42] LABS: CREATININE,URINE RANDOM 492 mg/dL (30-135); SODIUM,URINE RANDOM 23 mmol/l (40-220)
[2020-02-04 06:52] LABS: APPEARANCE,URINE TURBID (CLEAR); BILIRUBIN,URINE MODERATE (NEGATIVE); GLUCOSE, URINE (UA) NEGATIVE (NEGATIVE); KETONES,URINE 5 mg/dL (NEGATIVE); LEUKOCYTE ESTERASE ,URINE SMALL (NEGATIVE); NITRATE,URINE POSITIVE (NEGATIVE); OCCULT BLOOD,URINE LARGE (NEGATIVE); PROTEIN,URINE 100 mg/dL (NEGATIVE)
[2020-02-04 06:58] LABS: COLOR,URINE AMBER (YELLOW)
[2020-02-04 07:22] LABS: BACTERIA,URINE Many /HPF (None Seen); RBC,URINE TNTC /HPF (0-1); SQUAMOUS EPITHELIAL CELL,UR Few /HPF (0-2); WBC,URINE 51-100 /HPF (0-1)
[2020-02-04] MEDS: INSULIN HUMULIN R 100 UNIT/ML 3ML SQ SCH ×4 (07:30→20:37)
[2020-02-04] MEDS ORDERED: DEXTROSE 5%-WATER 1,000 ML IV SCH (07:45)
[2020-02-04] MEDS: FLUTICASONE PROPIONATE 50MCG/SPRAY 16 GM BOTTLE EN SCH (08:27)
[2020-02-04] MEDS: ENOXAPARIN SODIUM 120 MG/0.8ML SQ SCH (08:28)
[2020-02-04] MEDS: DEXAMETHASONE SOD PHOSPHATE 4 MG/ML 1ML VIAL IVP SCH (08:28)
[2020-02-04] MEDS: DEXTROSE 5%-LACTATED RINGERS 1,000 ML IV SCH ×3 (08:30→20:42)
[2020-02-04] MEDS: MIDAZOLAM 100MG-0.9% NS 100ML 100 ML IV SCH (08:31)
[2020-02-04 10:03] LABS: TROPONIN I < 0.04 ng/mL (0.00-0.06)
[2020-02-04] MEDS: FENTANYL 2500MCG+NS 250ML 250 ML IV SCH (10:10)
[2020-02-04 10:15] LABS: CREATINE KINASE, TOTAL 4310 U/L (21-232)
[2020-02-04 10:47] LABS: MYOGLOBIN 9520 ng/mL (10-92)
--- NOTE | 2020-02-04 13:13 | NUR ---
V200 V#[id number] Addendum: 02/04/20 at 1313 by ALEJO ODOMLT Amended: Links added.
[2020-02-04] MEDS: LACTULOSE 20 GM/30 ML UDCUP PO SCH ×2 (15:17→20:35)
[2020-02-05] VITALS (153 sets, daily range): BP systolic 121–173; BP diastolic 61–103
[2020-02-05] MEDS: FENTANYL 2500MCG+NS 250ML 250 ML IV SCH (02:04)
[2020-02-05] MEDS: ROCURONIUM BROMIDE 250 MG in SODIUM CHLORIDE 0.9% 250 ML IV SCH (02:04)
[2020-02-05] MEDS: MIDAZOLAM 100MG-0.9% NS 100ML 100 ML IV SCH ×2 (05:29→17:23)
[2020-02-05 05:36] LABS: BASOPHILS % (AUTO) 0.3 % (0.0-5.0); HEMATOCRIT 38.6 % (42-54); MEAN CORPUSCULAR HEMOGLOBIN 29.5 pg (27.0-33.0); MEAN CORPUSCULAR HGB CONC 32.1 g/dL (32.0-36.0); MEAN CORPUSCULAR VOLUME 91.7 fL (79-99); MONOCYTES % (AUTO) 6.9 % (3.0-13.0); NEUTROPHILS % (AUTO) 82.9 % (40.0-77.0); PLATELET COUNT (AUTO) 250 K/uL (130-400); RED BLOOD CELL COUNT(AUTO) 4.21 MIL/uL (4.50-6.20); RED CELL DISTRIBUTION WIDTH 13.4 % (11.0-15.5); WHITE BLOOD COUNT (AUTO) 14.5 K/uL (4.8-10.8)
[2020-02-05 06:09] LABS: ALBUMIN 1.8 g/dL (3.5-5.0); BILIRUBIN,TOTAL 1.7 mg/dL (0.2-1.0); MAGNESIUM 2.5 mg/dL (1.80-2.40); PHOSPHORUS 6.6 mg/dL (2.5-4.9); POTASSIUM 4.7 mmol/L (3.5-5.1); TOTAL PROTEIN, SERUM 6.5 g/dL (6.0-8.3)
[2020-02-05 06:11] LABS: CREATININE 9.3 mg/dL (0.5-1.5)
[2020-02-05] MEDS: DEXTROSE 5%-LACTATED RINGERS 1,000 ML IV SCH (08:26)
[2020-02-05] MEDS: DEXAMETHASONE SOD PHOSPHATE 4 MG/ML 1ML VIAL IVP SCH (08:31)
[2020-02-05] MEDS: ENOXAPARIN SODIUM 120 MG/0.8ML SQ SCH (08:32)
[2020-02-05] MEDS: LACTULOSE 20 GM/30 ML UDCUP PO SCH ×2 (08:32→20:44)
[2020-02-05] MEDS: INSULIN HUMULIN R 100 UNIT/ML 3ML SQ SCH ×4 (08:45→20:42)
[2020-02-05] MEDS: FLUTICASONE PROPIONATE 50MCG/SPRAY 16 GM BOTTLE EN SCH (08:55)
--- NOTE | 2020-02-05 11:51 | NUR ---
RDSCREEN - LOS X 13 -TUBE FEEDING MODIFICATION Pt Positive for COVID-19. Pt intubated, mechanical ventilation. Tube Feeding in place. Recommend modify tube feeding formula secondary to acute renal failure. Pt with dialysis as per RN. Propofol discontinued. Wt discrepancy as MD note mention BMI of 62, whereas today BMI 28.1 as per EMR. Tube Feeding recommendations faxed to 2C, RN notified. 1) Recommend Modify Tube Feeding to Renal Formula to Nepro. Goal Recommendations placed. Pt to be kept at Trickle feeds for now. 2) Increase Flushes to 180ml Q 4hrs as medically feasible 3) Weight discrepancy entered 02/04/20, MD note states BMI of 62 4) Propofol discontinued as per RN RD to continue to monitor. Please notify as additional nutrition concerns arise. Addendum: 02/05/20 at [address] Amended: Links added.
[2020-02-05] MEDS: MIDODRINE HCL 5 MG TABLET PO SCH ×2 (14:00→20:42)
[2020-02-06] VITALS (146 sets, daily range): BP systolic 105–202; BP diastolic 49–133
--- NOTE | 2020-02-06 07:00 | NUR ---
ACCEPTED CARE ACCEPTED CARE REPORT RECEIVED USING SBAR FORMAT
[2020-02-06] MEDS: INSULIN HUMULIN R 100 UNIT/ML 3ML SQ SCH ×4 (07:30→21:20)
[2020-02-06] MEDS: LACTULOSE 20 GM/30 ML UDCUP PO SCH ×2 (08:48→21:25)
[2020-02-06] MEDS: DEXAMETHASONE SOD PHOSPHATE 4 MG/ML 1ML VIAL IVP SCH (08:49)
[2020-02-06] MEDS: MIDODRINE HCL 5 MG TABLET PO SCH ×3 (08:49→21:00)
[2020-02-06] MEDS: ENOXAPARIN SODIUM 120 MG/0.8ML SQ SCH (08:51)
[2020-02-06] MEDS: FLUTICASONE PROPIONATE 50MCG/SPRAY 16 GM BOTTLE EN SCH (08:52)
[2020-02-06] MEDS: MIDAZOLAM 100MG-0.9% NS 100ML 100 ML IV SCH (15:38)
[2020-02-06] MEDS: ROCURONIUM BROMIDE 250 MG in SODIUM CHLORIDE 0.9% 250 ML IV SCH (15:38)
[2020-02-06] MEDS: FENTANYL 2500MCG+NS 250ML 250 ML IV SCH (15:39)
--- NOTE | 2020-02-06 16:00 | NUR ---
BED BATH PRONED COMPLETE BED BATH GIVEN. PRONED WITHOUT INCIDENCE.
[2020-02-06] MEDS: HEPARIN SODIUM 5000UNIT/ML 1ML VIAL SQ SCH (21:25)
[2020-02-07] VITALS (156 sets, daily range): BP systolic 84–231; BP diastolic 45–227
[2020-02-07] MEDS: MIDAZOLAM 100MG-0.9% NS 100ML 100 ML IV SCH ×2 (00:49→17:29)
--- NOTE | 2020-02-07 02:15 | NUR ---
EXTRUSION DIE TEMPLATE MAKER SSOLIS 2ND ICU Addendum: 02/10/20 at 0915 by ALEJO CHAMBERS RTSLT Amended: Links added.
[2020-02-07 03:15] LABS: ABG BASE EXCESS -0.7 mmol/L (-2.0-3.0); ABG HCO3 29.5 mmol/L (21.0-28.0); ABG OXYGEN SATURATION 84.6 % (95.0-99.0); ABG PCO2 76 mmHg (35-48)
[2020-02-07 05:28] LABS: BASOPHILS % (AUTO) 0.4 % (0.0-5.0); HEMATOCRIT 40.1 % (42-54); LYMPHOCYTES % (AUTO) 4.3 % (21.0-51.0); MEAN CORPUSCULAR HGB CONC 31.2 g/dL (32.0-36.0); MONOCYTES % (AUTO) 8.9 % (3.0-13.0); NEUTROPHILS % (AUTO) 82.1 % (40.0-77.0); NUCLEATED RED BLOOD CELLS 0.2 % (0.0-0.19); PLATELET COUNT (AUTO) 244 K/uL (130-400); RED BLOOD CELL COUNT(AUTO) 4.31 MIL/uL (4.50-6.20); RED CELL DISTRIBUTION WIDTH 13.4 % (11.0-15.5); WHITE BLOOD COUNT (AUTO) 24.9 K/uL (4.8-10.8)
[2020-02-07 06:03] LABS: ALBUMIN 1.9 g/dL (3.5-5.0); MAGNESIUM 2.3 mg/dL (1.80-2.40); PHOSPHORUS 8.9 mg/dL (2.5-4.9); POTASSIUM 4.9 mmol/L (3.5-5.1); TOTAL PROTEIN, SERUM 7.2 g/dL (6.0-8.3)
[2020-02-07 06:23] LABS: CREATININE 8.8 mg/dL (0.5-1.5)
[2020-02-07 06:35] LABS: OCCULT BLOOD,GASTRIC FLUID POSITIVE (NEGATIVE)
[2020-02-07] MEDS: HEPARIN SODIUM 5000UNIT/ML 1ML VIAL SQ SCH ×2 (06:44→20:33)
[2020-02-07 07:28] LABS: ABG BASE EXCESS -2.4 mmol/L (-2.0-3.0); ABG HCO3 28.8 mmol/L (21.0-28.0); ABG OXYGEN SATURATION 77.2 % (95.0-99.0); ABG PCO2 83 mmHg (35-48)
[2020-02-07] MEDS: FENTANYL 2500MCG+NS 250ML 250 ML IV SCH ×2 (07:59→17:30)
[2020-02-07] MEDS: INSULIN HUMULIN R 100 UNIT/ML 3ML SQ SCH ×4 (08:02→21:37)
[2020-02-07] MEDS: FLUTICASONE PROPIONATE 50MCG/SPRAY 16 GM BOTTLE EN SCH (09:00)
[2020-02-07] MEDS: LACTULOSE 20 GM/30 ML UDCUP PO SCH ×2 (09:00→20:33)
[2020-02-07] MEDS: MIDODRINE HCL 5 MG TABLET PO SCH ×3 (09:00→16:30)
[2020-02-07 09:13] LABS: HEPATITIS A ANTIBODY IGM Negative (Negative); HEPATITIS B CORE IGM Negative (Negative); HEPATITIS Bs ANTIGEN SCREEN P Negative (Negative)
[2020-02-07] MEDS: DEXAMETHASONE SOD PHOSPHATE 4 MG/ML 1ML VIAL IVP SCH (10:36)
[2020-02-07] MEDS: PANTOPRAZOLE SODIUM 80 MG in SODIUM CHLORIDE 0.9% 100 ML IV SCH (11:37)
[2020-02-07 14:00] LABS: HEMATOCRIT 41.4 % (42-54)
[2020-02-07] MEDS ORDERED: PANTOPRAZOLE SODIUM 80 MG in SODIUM CHLORIDE 0.9% 100 ML IV SCH (14:00)
[2020-02-07 15:42] LABS: ABG BASE EXCESS -3.2 mmol/L (-2.0-3.0); ABG HCO3 28.9 mmol/L (21.0-28.0); ABG OXYGEN SATURATION 79.7 % (95.0-99.0); ABG PCO2 91 mmHg (35-48)
[2020-02-07 19:22] LABS: ABG BASE EXCESS -2.7 mmol/L (-2.0-3.0); ABG OXYGEN SATURATION 81.1 % (95.0-99.0); ABG PCO2 88 mmHg (35-48)
[2020-02-07 21:44] LABS: HEMATOCRIT 38.4 % (42-54)
[2020-02-08] VITALS (119 sets, daily range): BP systolic 24–274; BP diastolic 20–274
[2020-02-08 05:35] LABS: MEAN CORPUSCULAR HEMOGLOBIN 29.7 pg (27.0-33.0); MEAN CORPUSCULAR HGB CONC 31.1 g/dL (32.0-36.0); MEAN CORPUSCULAR VOLUME 95.5 fL (79-99); NUCLEATED RED BLOOD CELLS 0.2 % (0.0-0.19); RED BLOOD CELL COUNT(AUTO) 3.77 MIL/uL (4.50-6.20); RED CELL DISTRIBUTION WIDTH 13.7 % (11.0-15.5); WHITE BLOOD COUNT (AUTO) 21.2 K/uL (4.8-10.8)
[2020-02-08 06:08] LABS: MAGNESIUM 2.7 mg/dL (1.80-2.40); PHOSPHORUS 11.2 mg/dL (2.5-4.9); POTASSIUM 5.8 mmol/L (3.5-5.1)
[2020-02-08] MEDS: PANTOPRAZOLE SODIUM 80 MG in SODIUM CHLORIDE 0.9% 100 ML IV SCH ×2 (06:43→20:49)
[2020-02-08] MEDS: MIDAZOLAM 100MG-0.9% NS 100ML 100 ML IV SCH (06:43)
[2020-02-08] MEDS: INSULIN HUMULIN R 100 UNIT/ML 3ML SQ SCH ×4 (06:48→21:10)
[2020-02-08] MEDS: FENTANYL 2500MCG+NS 250ML 250 ML IV SCH ×2 (06:48→21:19)
[2020-02-08 08:42] LABS: HEMATOCRIT 35.2 % (42-54)
[2020-02-08 08:46] LABS: ABG BASE EXCESS -3.2 mmol/L (-2.0-3.0); ABG HCO3 24.9 mmol/L (21.0-28.0); ABG OXYGEN SATURATION 80.4 % (95.0-99.0); ABG PCO2 57 mmHg (35-48)
[2020-02-08] MEDS: LACTULOSE 20 GM/30 ML UDCUP PO SCH ×2 (09:00→21:10)
[2020-02-08] MEDS: DEXAMETHASONE SOD PHOSPHATE 4 MG/ML 1ML VIAL IVP SCH (09:00)
[2020-02-08] MEDS: FLUTICASONE PROPIONATE 50MCG/SPRAY 16 GM BOTTLE EN SCH (09:00)
[2020-02-08] MEDS: MIDODRINE HCL 5 MG TABLET PO SCH ×3 (09:00→21:00)
--- NOTE | 2020-02-08 09:52 | NUR ---
PROGRESS NOTE Patient received sedated and paralyzed. Patient noted to have hard ping pong sized hematoma to right neck, ETT is noted to be too high per XRAY. PER ED MD, Hematoma must be evacuated in order for ETT to be advanced into the appropriate position. FRUIT II FARMWORKER Ricardo Stovall, made aware. Plan for day is to have patient get dialysis early so that Right neck IJ can be discontinued and a new trialysis will be placed in a different area.document advisor contacted and states she will be at bedside within 40 minutes. Will continue to monitor.
--- NOTE | 2020-02-08 12:27 | NUR ---
PATIENT STATUS ADMINISTRATIVE ASSISTANT RECEPTIONIST Ricardo states MD Abraham wants patients ETT to be advanced by by 3 cm. RT Wu notified that MD would like tube advanced. RT states that he is not comfortable advancing tube because of hematoma in the neck. ADMINISTRATIVE ASSISTANT RECEPTIONIST Ricardo notified of RT concerns, ADMINISTRATIVE ASSISTANT RECEPTIONIST states to call NIGHT CUSTODIAN to advanced tube. RN unable to get in contact with NIGHT CUSTODIAN, RN called MD Abraham directly to inform him that RT does not feel comfortable and NIGHT CUSTODIAN is unavailable, RN steve informed MD that patients o2 sat is 73% on 100% FiO2, 14 PEEP, 450 Tidal volume. , states " I don't know what you want me to tell you, I am not in the hospital and I am 30 minutes away". RN made electrician helper powerhouse aware and was able to contact NIGHT CUSTODIAN in [place], NIGHT CUSTODIAN [place] states they will call in A mesh cutter to come in to advance the tube. Patient sats remains in the 70's.
--- NOTE | 2020-02-08 12:39 | NUR ---
ENT CONSULT MD form ENT contacted regarding consult for right neck hematoma, MD states that it sounds like vascular issue and not a ENT issue. Charge nurse made aware.
[2020-02-08 13:32] LABS: HEMATOCRIT 40.2 % (42-54)
--- NOTE | 2020-02-08 13:41 | NUR ---
TUBE ADVANCEMENT VICE PRESIDENT UNDERWRITING advanced endotracheal tube by 3 cm, chest xray done. Patient o2 sat 84%. Will continue to monitor.
[2020-02-08] MEDS ORDERED: HEPARIN SODIUM 5000UNIT/ML 1ML VIAL ONE ×2 (13:56→13:57)
--- NOTE | 2020-02-08 13:59 | NUR ---
VENT CHANGE Patient o2 sat 84% and MD Abraham decreased patients FiO2 from 100% to 90%. RN informed patient that patients o2 saturation is 84% and he needs more fio2, MD Abraham states that patients oxygen saturation was 88% when he decreased patients fio2. Patients fio2 has not passed 84% since ETT was advanced. Will inform charge nurse and continue to monitor patient with low oxygen sats and decreased fio2.
[2020-02-08 16:58] LABS: HEMATOCRIT 36.9 % (42-54)
--- NOTE | 2020-02-08 17:32 | NUR ---
PRONE Patient continues to sat 84% on max vent settings, proned at 1700 to promote ventilation and oxygenation. After proning patient o2 sat 90%. Will continue to monitor.
[2020-02-08 17:35] LABS: ABG BASE EXCESS -3.9 mmol/L (-2.0-3.0); ABG HCO3 24.8 mmol/L (21.0-28.0); ABG OXYGEN SATURATION 84.7 % (95.0-99.0); ABG PCO2 63 mmHg (35-48)
[2020-02-08] MEDS: ROCURONIUM BROMIDE 250 MG in SODIUM CHLORIDE 0.9% 250 ML IV SCH (20:49)
[2020-02-09] VITALS (146 sets, daily range): BP systolic 107–180; BP diastolic 55–179
[2020-02-09 04:03] LABS: ABG BASE EXCESS -5.2 mmol/L (-2.0-3.0); ABG HCO3 23.1 mmol/L (21.0-28.0); ABG PCO2 56 mmHg (35-48)
[2020-02-09 04:24] LABS: BASOPHILS % (AUTO) 0.2 % (0.0-5.0); HEMATOCRIT 34.6 % (42-54); LYMPHOCYTES % (AUTO) 3.6 % (21.0-51.0); MEAN CORPUSCULAR HEMOGLOBIN 29.4 pg (27.0-33.0); MEAN CORPUSCULAR HGB CONC 31.5 g/dL (32.0-36.0); MEAN CORPUSCULAR VOLUME 93.3 fL (79-99); MONOCYTES % (AUTO) 4.9 % (3.0-13.0); NEUTROPHILS % (AUTO) 87.3 % (40.0-77.0); NUCLEATED RED BLOOD CELLS 0.5 % (0.0-0.19); PLATELET COUNT (AUTO) 226 K/uL (130-400); RED BLOOD CELL COUNT(AUTO) 3.71 MIL/uL (4.50-6.20); WHITE BLOOD COUNT (AUTO) 21.8 K/uL (4.8-10.8)
[2020-02-09 04:43] LABS: POTASSIUM 5.1 mmol/L (3.5-5.1)
[2020-02-09 04:54] LABS: CREATININE 8.4 mg/dL (0.5-1.5)
[2020-02-09] MEDS: LACTULOSE 20 GM/30 ML UDCUP PO SCH ×2 (09:00→20:16)
[2020-02-09] MEDS: FENTANYL 2500MCG+NS 250ML 250 ML IV SCH ×3 (09:14→20:16)
[2020-02-09] MEDS: INSULIN HUMULIN R 100 UNIT/ML 3ML SQ SCH ×4 (09:29→21:00)
[2020-02-09] MEDS: FLUTICASONE PROPIONATE 50MCG/SPRAY 16 GM BOTTLE EN SCH (09:33)
[2020-02-09] MEDS: DEXAMETHASONE SOD PHOSPHATE 4 MG/ML 1ML VIAL IVP SCH (09:38)
[2020-02-09] MEDS: MIDODRINE HCL 5 MG TABLET PO SCH ×3 (09:39→20:17)
[2020-02-09] MEDS: MIDAZOLAM 100MG-0.9% NS 100ML 100 ML IV SCH (12:35)
[2020-02-09] MEDS: PANTOPRAZOLE SODIUM 80 MG in SODIUM CHLORIDE 0.9% 100 ML IV SCH (15:28)
[2020-02-09] MEDS: ROCURONIUM BROMIDE 250 MG in SODIUM CHLORIDE 0.9% 250 ML IV SCH (18:56)
[2020-02-09] MEDS: ACETAMINOPHEN 325 MG TAB PO PRN (20:16)
[2020-02-10] VITALS (164 sets, daily range): BP systolic 83–176; BP diastolic 51–171
[2020-02-10] MEDS: ACETAMINOPHEN 325 MG TAB PO PRN ×2 (01:27→01:28)
[2020-02-10] MEDS: MIDAZOLAM 100MG-0.9% NS 100ML 100 ML IV SCH ×3 (01:27→15:37)
[2020-02-10] MEDS: FENTANYL 2500MCG+NS 250ML 250 ML IV SCH ×2 (04:09→18:08)
[2020-02-10 04:16] LABS: ABG BASE EXCESS -9.7 mmol/L (-2.0-3.0); ABG HCO3 20.5 mmol/L (21.0-28.0); ABG OXYGEN SATURATION 79.9 % (95.0-99.0); ABG PCO2 63 mmHg (35-48)
[2020-02-10 04:24] LABS: BASOPHILS % (AUTO) 0.3 % (0.0-5.0); EOSINOPHILS % (AUTO) 0.4 % (0.0-8.0); HEMATOCRIT 35.7 % (42-54); LYMPHOCYTES % (AUTO) 1.8 % (21.0-51.0); MEAN CORPUSCULAR HEMOGLOBIN 30.1 pg (27.0-33.0); MEAN CORPUSCULAR HGB CONC 31.1 g/dL (32.0-36.0); MEAN CORPUSCULAR VOLUME 96.7 fL (79-99); MONOCYTES % (AUTO) 5.3 % (3.0-13.0); NEUTROPHILS % (AUTO) 86.7 % (40.0-77.0); NUCLEATED RED BLOOD CELLS 0.6 % (0.0-0.19); PLATELET COUNT (AUTO) 247 K/uL (130-400); RED BLOOD CELL COUNT(AUTO) 3.69 MIL/uL (4.50-6.20); RED CELL DISTRIBUTION WIDTH 14.5 % (11.0-15.5); WHITE BLOOD COUNT (AUTO) 28.4 K/uL (4.8-10.8)
[2020-02-10 05:03] LABS: POTASSIUM 6.4 mmol/L (3.5-5.1)
[2020-02-10 05:04] LABS: CREATININE 9.4 mg/dL (0.5-1.5)
[2020-02-10] MEDS ORDERED: SODIUM BICARB 50MEQ 50ML VIAL IV SCH (07:30)
[2020-02-10] MEDS: DEXAMETHASONE SOD PHOSPHATE 4 MG/ML 1ML VIAL IVP SCH (09:00)
[2020-02-10] MEDS: LACTULOSE 20 GM/30 ML UDCUP PO SCH ×2 (09:00→22:14)
[2020-02-10] MEDS: MIDODRINE HCL 5 MG TABLET PO SCH ×3 (09:00→21:00)
[2020-02-10] MEDS: INSULIN HUMULIN R 100 UNIT/ML 3ML SQ SCH ×4 (09:18→22:14)
[2020-02-10] MEDS: ROCURONIUM BROMIDE 250 MG in SODIUM CHLORIDE 0.9% 250 ML IV SCH ×2 (10:42→18:31)
[2020-02-10] MEDS: FLUTICASONE PROPIONATE 50MCG/SPRAY 16 GM BOTTLE EN SCH (11:09)
[2020-02-10] MEDS ORDERED: HEPARIN SODIUM 5000UNIT/ML 1ML VIAL ONE (13:15)
[2020-02-10] MEDS: PANTOPRAZOLE SODIUM 80 MG in SODIUM CHLORIDE 0.9% 100 ML IV SCH (15:37)
[2020-02-10] MEDS ORDERED: SODIUM CHLORIDE 0.9% 250 ML IV ONE (21:58)
[2020-02-10 22:12] LABS: ABG BASE EXCESS -5.2 mmol/L (-2.0-3.0); ABG HCO3 26.4 mmol/L (21.0-28.0); ABG OXYGEN SATURATION 62.1 % (95.0-99.0); ABG PCO2 84 mmHg (35-48)
--- NOTE | 2020-02-10 23:11 | NUR ---
HYPOXIA PT HAS CRITICAL ABG AFTER HD AND WHILE PRONED. PT 02 SATURATIONS REMAINS IN THE 70'S AND EVEN WORST ON ABG. BENCHMARK DATA BASE DESIGN ANALYST NOTIFIED, AND CAME TO BEDSIDE. PT REMAINS ON MAX VENT SETTINGS. PT PROGNOSIS IS POOR AND FAMILY WAS MADE AWARE AND ALLOWED TO VIDEO TIME WITH PATIENT. FAMILY WAS ALSO ABLE TO BRING PT HIS ROSARY. ROSARY IS NOW WITH PATIENT. ALL CARE WAS PERFORMED LUNA CARE, MOUTH CARE AND LINEN CHANGED.. PT IS SINUS TACH ON THE MONITOR WITH ACCEPTABLE BP AND REMAINS AFEBRILE. BELLA, FENTANYL, VERSED, AND PROTONIX GTTS REMAINS.VENT SETTING ARE AC RR 38, PEEP 14, VT 420 FIO2 100%, PIP 41 WITH PLATEAU 36.8
[2020-02-11] VITALS (59 sets, daily range): BP systolic 17–145; BP diastolic 16–86
[2020-02-11] MEDS: MIDODRINE HCL 5 MG TABLET PO SCH ×3 (01:18→12:35)
[2020-02-11] MEDS ORDERED: SODIUM CHLORIDE 0.9% 250 ML IV ONE ×2 (01:27→02:28)
[2020-02-11] MEDS ORDERED: PHENYLEPHRINE HCL 10 MG/ML 1ML VIAL IV ONE ×2 (02:27→02:35)
[2020-02-11] MEDS ORDERED: PHENYLEPHRINE HCL 50 MG in SODIUM CHLORIDE 0.9% 250 ML IV PRN (02:45)
[2020-02-11] MEDS ORDERED: NOREPINEPHRINE BITARTRATE 1 MG/1 ML ML IV ONE (03:59)
[2020-02-11] MEDS ORDERED: NOREPINEPHRINE 4MG/NS 250ML 250 ML IV ONE (03:59)
[2020-02-11 04:31] LABS: EOSINOPHILS % (AUTO) 0.5 % (0.0-8.0); HEMATOCRIT 37.4 % (42-54); LYMPHOCYTES % (AUTO) 2.1 % (21.0-51.0); MEAN CORPUSCULAR HEMOGLOBIN 29.8 pg (27.0-33.0); MEAN CORPUSCULAR HGB CONC 30.7 g/dL (32.0-36.0); MEAN CORPUSCULAR VOLUME 96.9 fL (79-99); MONOCYTES % (AUTO) 5.7 % (3.0-13.0); NEUTROPHILS % (AUTO) 86.4 % (40.0-77.0); PLATELET COUNT (AUTO) 340 K/uL (130-400); RED BLOOD CELL COUNT(AUTO) 3.86 MIL/uL (4.50-6.20); RED CELL DISTRIBUTION WIDTH 15.3 % (11.0-15.5)
[2020-02-11 04:34] LABS: WHITE BLOOD COUNT (AUTO) 40.5 K/uL (4.8-10.8)
[2020-02-11] MEDS ORDERED: SODIUM CHLORIDE 0.9% 500ML 500 ML IV ONE (04:43)
[2020-02-11 05:00] LABS: BAND NEUTROPHILS % (MANUAL) 17 % (0-2); LYMPHOCYTES % (MANUAL) 6 % (22-44); MAN.DIFF COMMENT-IMPRESSION MANUAL DIFFERENTIAL; MONOCYTES % (MANUAL) 3 % (2-9); PLATELET MORPHOLOGY COMMENT ADEQUATE; SEGMENTED NEUTROPHILS % 74 % (40-70)
[2020-02-11] MEDS: ZOSYN 3.375GM+NS 50ML 50 ML IV SCH ×2 (05:00→16:03)
[2020-02-11] MEDS ORDERED: VANCOMYCIN PROTOCOL PER PHARMACY IV SCH (05:00)
[2020-02-11] MEDS ORDERED: RENAL DOSE IV PRN (05:00)
[2020-02-11 05:07] LABS: MAGNESIUM 2.6 mg/dL (1.80-2.40); PHOSPHORUS 9.5 mg/dL (2.5-4.9)
--- NOTE | 2020-02-11 05:18 | NUR ---
HYPOTENSION PT HYPOTENSIVE TONIGHT WITH BP 60/40'S AND 70/40'S SPO2 remains low BENCHMARK BURN NURSE NOTIFIED. PT WAS HYPOTENSIVE AND SINUS TACH ON MONITOR PT TEMP WAS 103.0 ORDERS FOR 500CC BOLUS GIVEN 250cc bolus also given. PT WAS ALSO STARTED ON ADEEL and bp response was marginal therefore low dose levo was started. WBC's are also elevated and Benchmark superintendent drilling and production was also made aware of. Tylenol given for temp and pt was placed under a cooling fan. Family was updated several times throughout the time. Pt remains a FULL CODE, ongoing monitoring and care continues
[2020-02-11] MEDS: ACETAMINOPHEN 325 MG TAB PO PRN (05:32)
[2020-02-11 05:58] LABS: CREATININE 7.9 mg/dL (0.5-1.5); POTASSIUM 6.3 mmol/L (3.5-5.1)
[2020-02-11] MEDS ORDERED: NOREPINEPHRINE BITARTRATE 8 MG in SODIUM CHLORIDE 0.9% 250 ML IV SCH (06:00)
[2020-02-11] MEDS ORDERED: VANCOMYCIN 2 GM in SODIUM CHLORIDE 0.9% 500ML 500 ML IV SCH (06:30)
[2020-02-11] MEDS: INSULIN HUMULIN R 100 UNIT/ML 3ML SQ SCH ×3 (07:30→16:21)
[2020-02-11] MEDS ORDERED: SODIUM BICARB 50MEQ 50ML VIAL IV SCH (08:24)
[2020-02-11] MEDS ORDERED: VANCOMYCIN 1GM+NS 250ML 250 ML IV SCH (09:00)
--- NOTE | 2020-02-11 09:00 | NUR ---
Spoke to patient's sister, Belle Marinelli, updated family member with current pt's status, including O2 sats 60's with ventilator FIO2 100, PEEP 14, DNR form witnessed via phone from pt's sister, second witnessed performed per Charge Nurse SELENE Melendez
[2020-02-11] MEDS: DEXAMETHASONE SOD PHOSPHATE 4 MG/ML 1ML VIAL IVP SCH (09:02)
[2020-02-11] MEDS: LACTULOSE 20 GM/30 ML UDCUP PO SCH (09:02)
[2020-02-11] MEDS: FLUTICASONE PROPIONATE 50MCG/SPRAY 16 GM BOTTLE EN SCH (09:02)
[2020-02-11] MEDS: MIDAZOLAM 100MG-0.9% NS 100ML 100 ML IV SCH (10:32)
[2020-02-11] MEDS: FENTANYL 2500MCG+NS 250ML 250 ML IV SCH (10:53)
[2020-02-11] MEDS: NOREPINEPHRINE BITARTRATE 32 MG in SODIUM CHLORIDE 0.9% 250 ML IV SCH ×2 (11:58→15:05)
[2020-02-11] MEDS: ROCURONIUM BROMIDE 250 MG in SODIUM CHLORIDE 0.9% 250 ML IV SCH (12:00)
--- NOTE | 2020-02-11 13:40 | NUR ---
Dr Abraham at bedside, made aware already maxed out on Levophed and Sukh, current B/P 80/56, MAP 63, as per MD, no new orders at this time, remains DNR. Instructions given to keep patient on prone position, not to move patient at all.
[2020-02-11] MEDS: PHENYLEPHRINE HCL 100 MG in SODIUM CHLORIDE 0.9% 250 ML IV SCH (14:53)
--- NOTE | 2020-02-11 18:00 | NUR ---
Noted to be asystole, as per EKG monitoring, no apical pulse, no peripheral pulses noted, no breath sounds noted, no peripheral blood pressure or arterial blood pressure noted. Pronouncement of done per Kaye Rosario RN at bedside. Dr Abraham performed pronouncement via Vioozer.
--- NOTE | 2020-02-11 18:25 | NUR ---
Notified JAIDEN about patient's expiring, , case has been ruled out, as per Cassidy, due to COVID positive.
--- NOTE | 2020-02-11 18:30 | NUR ---
Notified patient's sister Belle Marinelli about pt's expiring, she stated she will call back with the name of home
--- NOTE | 2020-02-11 18:40 | NUR ---
Patient's [facility] called back at this time, [facility]
== END 2020-02-11 18:00 | disposition expired | DRG 207 ==
LOC: EDH 09:56 → EDHIP 09:57 → OBSVTOIN 09:57 → 3BH 23:40 → 2AH 01-30 12:34 → 2CH 02-02 01:53 → 2CV 02-07 22:54
PROVIDERS: ADMIT Internal Medicine Pulmonary Disease; ATTEND Internal Medicine Pulmonary Disease
PROC: XW13325 Transfusion of Convalescent Plasma (Nonautologous) into Peripheral Vein, Percutaneous Approach, New Technology Group 5 (ICD-10-PCS; 2020-01-24)
PROC: XW033E5 Introduction of Remdesivir Anti-infective into Peripheral Vein, Percutaneous Approach, New Technology Group 5 (ICD-10-PCS; 2020-01-24)
PROC: XW033E5 Introduction of Remdesivir Anti-infective into Peripheral Vein, Percutaneous Approach, New Technology Group 5 (ICD-10-PCS; 2020-01-25)
PROC: 0BH17EZ Insertion of Endotracheal Airway into Trachea, Via Natural or Artificial Opening (ICD-10-PCS; principal; 2020-02-02)
PROC: 5A1955Z Respiratory Ventilation, Greater than 96 Consecutive Hours (ICD-10-PCS; 2020-02-02)
PROC: 5A09457 Assistance with Respiratory Ventilation, 24-96 Consecutive Hours, Continuous Positive Airway Pressure (ICD-10-PCS; 2020-02-05)
PROC: 02HV33Z Insertion of Infusion Device into Superior Vena Cava, Percutaneous Approach (ICD-10-PCS; 2020-02-05)
PROC: 5A1D70Z Performance of Urinary Filtration, Intermittent, Less than 6 Hours Per Day (ICD-10-PCS; 2020-02-05)
PROC: 5A1D70Z Performance of Urinary Filtration, Intermittent, Less than 6 Hours Per Day (ICD-10-PCS; 2020-02-06)
PROC: 5A1D70Z Performance of Urinary Filtration, Intermittent, Less than 6 Hours Per Day (ICD-10-PCS; 2020-02-08)
PROC: 5A1D70Z Performance of Urinary Filtration, Intermittent, Less than 6 Hours Per Day (ICD-10-PCS; 2020-02-10)
DX: U07.1 COVID-19 (principal); J96.01 Acute respiratory failure with hypoxia; J12.89 Other viral pneumonia; J96.02 Acute respiratory failure with hypercapnia; N18.6 End stage renal disease; A41.9 Sepsis, unspecified organism; Z68.44 Body mass index [BMI] 60.0-69.9, adult; E66.2 Morbid (severe) obesity with alveolar hypoventilation; N17.9 Acute kidney failure, unspecified; M62.82 Rhabdomyolysis; E87.4 Mixed disorder of acid-base balance; I12.0 Hypertensive chronic kidney disease with stage 5 chronic kidney disease or end stage renal disease; J42 Unspecified chronic bronchitis; E11.9 Type 2 diabetes mellitus without complications; E11.22 Type 2 diabetes mellitus with diabetic chronic kidney disease; E87.5 Hyperkalemia; S10.93XA Contusion of unspecified part of neck, initial encounter; Z66 Do not resuscitate; Z87.891 Personal history of nicotine dependence; Z99.2 Dependence on renal dialysis
CPT/HCPCS: 31500; 36415; 36600; 71045; 71250; 76536; 80048; 80053; 80074; 80076; 81001; 82140; 82248; 82271; 82435; 82550; 82570; 82728; 82803; 82947; 82948; 83605; 83735; 83874; 83880; 84100; 84132; 84145; 84295; 84300; 84484; 85014; 85018; 85025; 85027; 85378; 85610; 85730; 86140; 86850; 86900; 86901; 86927; 87040; 87071; 87077; 87088; 87186; 87205; 87426; 90935; 92950; 93005; 93306; 93356; 94002; 94003; 94660; C9113; G0378; J0696; J1100; J1644; J1650; J1815; J1940; J1956; J2250; J2370; J2543; J2704; J3010; J3370; J3490; J7030; J7040; J7050; J7120